=== PATIENT | male | born 1980 | race Caucasian/White ===

== ENCOUNTER 2022-04-10 15:09 | Emergency (ER) | payer BC, SELFPAY ==
--- NOTE | ~2022-04-10 | CT_ITS ---
EXAMINATION: CT brain wo con DATE: 04/10/2022 15:50 INDICATION: altered mental status . TECHNIQUE: Computed tomography (CT) of the head was performed without intravenous contrast. The mA wa s adjusted according to patient size. Iterative reconstruction technique was employed. The dose-lengt h product was 605.33 mGy-cm. COMPARISON: None FINDINGS: No acute intracranial hemorrhage or extra-axial fluid collection. No hydrocephalus, mass, or herniation. No acute ischemic infarct. Unremarkable dural venous sinus attenuation. No acute osseous abnormality. Moderate mucoperiosteal thickening in the maxillary and ethmoid air cells. Mild thickening in the fro ntal and sphenoid sinuses. Mastoid spaces are clear. IMPRESSION: No acute intracranial process. Reviewed, dictated and finalized at location K.
[2022-04-10 15:14] VITALS: BP 141/95; PULSE 113; RESP 16; TEMP 36.6; O2SAT 97
--- NOTE | 2022-04-10 15:16 | PC.NURSE ---
BS 105
[2022-04-10 15:17] LABS: Glucose Point of Care 105 mg/dl (65-105)
--- NOTE | 2022-04-10 15:25 | PC.NURSE ---
when pt was asked why he did not feel safe at home pt states, I do not feel comfortable. pt asked what he didn't feel comfortable with and he took both his hands and made a motion from his shoulder to his waist. this RN asked if he meant he was uncomfortable with himself, he shook his head as to say yes . pt shares he feels as if he is being controlled. pt asked if he was willing to elaborate to which he responded, no .
--- NOTE | 2022-04-10 15:27 | PC.NURSE ---
due to nature of pt mental status I do not feel as if he can honestly or accurately answer our [place] suicide risk questions.
--- NOTE | 2022-04-10 15:31 | ECG_ITS ---
Measurements Intervals [place] Rate: 89 P: -1 AR: 143 QRS: 74 QRSD: 96 T: 29 QT: 378 QTc: 461 Interpretive Statements SINUS RHYTHM BASELINE ARTIFACT- V3 NORMAL ECG Electronically Signed On 04-10-2022 19:00:27 CDT by Seth Sifuentes D.O.
[2022-04-10 15:44] LABS: Basophils Percent Auto 0.6 % (0.2-1.2); Eosinophils Percent Auto 0.6 % (0-4.4); Hematocrit 45.3 % (42.0-52.0); Hemoglobin 15.4 g/dL (14.0-18.0); Lymphocytes Absolute Auto 2.14 K/mm3 (0.9-3.2); Lymphocytes Percent Auto 42.8 % (18.3-44.2); Mean Corpuscular Volume 91.3 fl (80-100); Mean Platelet Volume 9.2 fl (7.4-10.4); Monocytes Absolute Auto 0.3 K/mm3 (0.1-0.6); Monocytes Percent Auto 5.2 % (2.6-8.5); Neutrophils Absolute Auto 2.5 K/mm3 (1.3-6.7); Neutrophils Percent Auto 50.8 % (45.5-73.1); Platelet Count Result 255 k/mm3 (150-375); Red Blood Count 4.96 M/mm3 (4.6-6.20); Red Cell Distribution Width 13.2 % (11.5-14.5)
[2022-04-10 15:54] LABS: Prothrombin Time 12.9 Seconds (11.1-14.7)
[2022-04-10 15:59] LABS: Alanine Aminotransferase 30 U/L (6-50); Albumin Level 4.7 g/dL (3.5-5.1); Alkaline Phosphatase 51 U/L (38-126); Anion Gap 16 mmol/L (8-16); Aspartate Amino Transferase 48 U/L (17-59); Bilirubin,Total 0.3 mg/dL (0.2-1.3); Blood Urea Nitrogen 10 mg/dL (9-20); Calcium 8.9 mg/dL (8.4-10.2); Carbon Dioxide 23 mmol/L (22-30); Chloride 107 mmol/L (98-107); Estimated CRCL calculation 108 ml/min; Estimated Glomerular Filt Rate > 60; Glucose 104 mg/dL (65-110); Potassium 4.1 mmol/L (3.4-5.0); Sodium 146 mmol/L (137-145)
[2022-04-10 16:36] VITALS: BP 133/78; PULSE 92; RESP 16; TEMP 36.8; O2SAT 97
[2022-04-10] MEDS: SODIUM CHLORIDE 0.9% IV 1,000 ML 999 ML IV CONT (16:38)
[2022-04-10 16:39] LABS: Ammonia < 9 umol/L (9-30)
[2022-04-10 16:46] LABS: Ethanol 343 mg/dL (<10)
[2022-04-10 17:20] VITALS: BP 133/90; PULSE 82; RESP 16; TEMP 36.8; O2SAT 100
--- NOTE | 2022-04-10 17:27 | ED.AMS ---
HPI - Altered Mental Status General Chief Complaint: Altered Mental Status Stated Complaint: AMS Time Seen by Provider: 04/10/22 15:55 Source: patient History of Present Illness HPI narrative: Patient did not want to come to the ER he was brought in by his . was concerned that he is acting abnormal and different he has not been eating or drinking for the past few days. Patient ports he does not want to be here ports he had intermittent nausea and diarrhea over this time does not feel great. He also reports a mild headache. Denies any fevers or chills denies any cough congestion. Family and the patient attributing his nausea vomiting diarrhea to stress. Related Data Allergies Allergy/AdvReac Type Severity Reaction Status Date / Time [place] Allergy Severe Rash Verified 04/10/22 16:37 Review of Systems Review of Systems: CONSTITUTIONAL: Denies fever, chills, or sweats. EYES: Denies visual changes, redness, or discharge. ENT: Denies rhinorrhea, congestion, sore throat, or otalgia. CARDIOVASCULAR: Denies chest pain, palpitations, or edema. RESPIRATORY: Denies cough or dyspnea. GASTROINTESTINAL: Denies abdominal pain, nausea, vomiting, or diarrhea. GENITOURINARY: Denies dysuria or hematuria. SKIN: Denies rash or itching. MUSCULOSKELETAL: Denies back pain, joint pain, or myalgia. NEUROLOGIC: Denies headache, numbness, dizziness, or weakness. PSYCHIATRIC: Denies anxiety or depression. All systems reviewed & are unremarkable except as noted in HPI and below PMFSH Social History Social History Substance use type: does not use Exam Narrative: GENERAL: Well-appearing, well-nourished, and in no acute distress. HEAD: Normocephalic, atraumatic. EYES: PERRLA and EOMI. ENT: Nares clear, no rhinorrhea or epistaxis. Mucous membranes moist. NECK: Supple. No masses. No JVD CHEST: Clear to auscultation. No respiratory distress. No wheezes rales or rhonchi HEART: Regular rate and rhythm. No murmur heard. Normal peripheral pulses. ABDOMEN: Soft, nontender, nondistended, normal active bowel sounds. EXTREMITIES: Normal range of motion. No edema. SKIN: Warm, dry, no rash. NEURO: No focal deficits. Alert and oriented to self, location PSYCH: Normal mood and affect. Course Reevaluation(s) Reevaluation #1: Patient is resting comfortably results reviewed with patient and family. Patient does have a history of alcohol abuse he admitted to drinking yesterday and today. Family would like outpatient resources for alcohol rehab and would like to continue metabolization at home. Date: 04/10/22 Time: 17:29 Vital Signs Vital signs: Vital Signs Temperature 36.6 C 04/10/22 15:14 Pulse Rate 113 H 04/10/22 15:14 Respiratory Rate 16 04/10/22 15:14 Blood Pressure 141/95 H 04/10/22 15:14 Pulse Oximetry 97 04/10/22 15:14 Oxygen Delivery Room Air 04/10/22 15:14 Temperature 36.4 C 04/10/22 17:52 Pulse Rate 82 04/10/22 17:20 Respiratory Rate 16 04/10/22 17:20 Blood Pressure 133/90 04/10/22 17:20 Pulse Oximetry 100 04/10/22 17:20 Oxygen Delivery Room Air 04/10/22 15:14 MDM - Altered Mental Status MDM Narrative Medical decision making narrative: H&P as above, vss, pt looks clinically well, exam nonacute abdomen no focal neurological deficits, labs with elevated alcohol otherwise clinically unremarkable, img without acute process, additional labs/img considered, symptomatic relief available as needed, on reevaluation pt continues to looks clinically well. Suspect alcohol intoxication, dns intracranial hemorrhage, severe sepsis, severe dehydration, electrolyte abnormality. plan to tx/monitor as op w/ pcm f/u findings/plan discussed with pt, pt agree/comfortable with plan, return precautions given. Patient was discharged with family and given outpatient resources for alcohol abuse. Lab Data Result diagrams: 04/10/22 15:39 04/10/22 15:39 Labs: Lab Results 04/10/22
[2022-04-10 17:52] VITALS: TEMP 36.4
== END 2022-04-10 17:53 | disposition home or self-care (01) ==
PROVIDERS: Family Medicine; Emergency Provider Emergency Medicine
DX: F10.129 Alcohol abuse with intoxication, unspecified (principal); Y90.8 Blood alcohol level of 240 mg/100 ml or more
CPT/HCPCS: 36415; 70450; 80053; 80307; 82140; 82948; 84443; 85025; 85610; 85730; 93005; 96360; 99284; J7030